=== PATIENT | male | born 1985 | race Caucasian/White ===

== ENCOUNTER 2017-06-16 08:47 | Emergency (ER) | payer SELFPAY ==
[2017-06-16 08:56] VITALS: BP 160/70; PULSE 99; TEMP 98.7; BMI 29.1
[2017-06-16] MEDS ORDERED: KETOROLAC TROMETHAMINE 60 MG/2 ML VIAL IM ONE (09:11)
[2017-06-16] MEDS ORDERED: KETOROLAC TROMETHAMINE 60 MG/2 ML VIAL ONE (09:13)
[2017-06-16 09:42] LABS: URINE APPEARANCE CLEAR; URINE BILIRUBIN NEGATIVE (NEGATIVE); URINE BLOOD 1+ (NEGATIVE); URINE COLOR YELLOW; URINE GLUCOSE (UA) NEGATIVE (NEGATIVE); URINE KETONE NEGATIVE (NEGATIVE); URINE LEUK ESTERASE NEGATIVE (NEGATIVE); URINE NITRITE NEGATIVE (NEGATIVE); URINE PROTEIN NEGATIVE (NEGATIVE); URINE UROBILINOGEN NEGATIVE mg/dL (0.2-1.0)
[2017-06-16 10:06] LABS: URINE MUCUS RARE; URINE RBC 1 /hpf (0-3); URINE WBC 1 /hpf (3-5)
--- NOTE | 2017-06-16 11:56 | PDOC ---
History of Present Illness - General Chief Complaint: Back Pain Stated Complaint: LOWER BACK PAIN Time Seen by Provider: 06/16/17 09:03 History Source: Patient Exam Limitations: No Limitations - History of Present Illness Initial Comments: 06/16/17 11:50 CC mild left mid back pain; no FEver/ chills; no cough; Mild suprapubic pain x 2 -3 days 06/16/17 11:51 2-3 days Pain Location: reports: back Method of Injury: No: assault, direct blow, fall Past History - Past Medical History Allergies/Adverse Reactions: Allergies Allergy/AdvReac Type Severity Reaction Status Date / Time No Known Allergies Allergy Verified 06/16/17 08:52 Home Medications: Ambulatory Orders NK [No Known Home Medication] 06/16/17 Psychiatric Problems: Yes (BIPOLAR) - Psycho/Social/Smoking Cessation Hx Anxiety: Yes Suicidal Ideation: No Smoking Status: No Smoking History: Never smoked Number of Cigarettes Smoked Daily: 0 Hx Alcohol Use: No Drug/Substance Use Hx: No Substance Use Type: Alcohol Review of Systems - Review of Systems Constitutional: Yes: Malaise. No: Chills, Fever HEENTM: No: Symptoms Reported Respiratory: No: Cough, SOB with Exertion, SOB at Rest, Stridor, Wheezing Cardiac (ROS): No: Symptoms Reported, Chest Pain, Irregular Heart Rate ABD/GI: No: Symptoms Reported, Abdominal Distended, Diarrhea, Nausea, Vomiting : No: Burning, Dysuria Musculoskeletal: Yes: Back Pain (left back) *Physical Exam - Vital Signs Last Vital Signs Temp Pulse Resp BP Pulse Ox 98.7 F 99 H 19 160/70 99 06/16/17 08:53 06/16/17 08:53 06/16/17 08:53 06/16/17 08:53 06/16/17 08:53 - Physical Exam General Appearance: Yes: Appropriately Dressed. No: Apparent Distress HEENT: positive: TMs Normal, Pharynx Normal Neck: positive: Supple. negative: Tender, Rigid, Lymphadenopathy (R), Lymphadenopathy (L) Respiratory/Chest: positive: Lungs Clear, Normal Breath Sounds. negative: Chest Tender, Rhonchi, Stridor, Wheezing Cardiovascular: positive: Regular Rhythm, Regular Rate. negative: Murmur Gastrointestinal/Abdominal: positive: Normal Bowel Sounds, Soft. negative: Tender, Rebound, Tenderness, Hepatomegaly, Spleenomegaly Musculoskeletal: positive: CVA Tenderness (on left), Other (tender to area of L2 -L4; perispinal; no midline tenderness) Integumentary: negative: Cyanotic Neurologic: positive: Motor Strength 5/5, Other (no foot drop; DTRs= bilateral equal; SLRs= no root pain) ED Treatment Course - ADDITIONAL ORDERS Additional order review: Laboratory Results 06/16/17 09:13 Urine Color Yellow Urine Appearance Clear Urine pH 5.0 Urine Protein Negative Urine Glucose (UA) Negative Urine Ketones Negative Urine Blood 1+ H Urine Nitrite Negative Urine Bilirubin Negative Urine Urobilinogen Negative Ur Leukocyte Esterase Negative Urine RBC 1 Urine WBC 1 Ur Epithelial Cells Rare Urine Mucus Rare - RADIOLOGY Radiology Studies Ordered: Category Date Time Status ABDOMEN & PELVIS CT W/O CONTR [CT] Stat CT Scan 06/16/17 10:12 Taken - Medications Given in the ED: ED Medications Discontinued Medications Generic Name Dose Route Start Last Admin Trade Name Freq PRN Reason Stop Dose Admin Ketorolac Tromethamine 60 mg 06/16/17 09:11 06/16/17 09:21 Toradol Injection - IM 06/16/17 09:12 60 mg ONCE ONE Administration Medical Decision Making - Medical Decision Making 06/16/17 11:55 mild improvement post toradol; UA= notes 1 + blood with CVA tenderness on left; sent to CT for renal protocol *DC/Admit/Observation/Transfer Diagnosis at time of Disposition: Pain in lower back Qualifiers: Chronicity: acute Back pain laterality: left Sciatica presence: without sciatica Qualified Code(s): M54.5 - Low back pain - Discharge Dispostion Disposition: HOME Condition at time of disposition: Stable Admit: No
--- NOTE | 2017-06-16 12:07 | PDOC ---
History of Present Illness - General Chief Complaint: Back Pain Stated Complaint: LOWER BACK PAIN Time Seen by Provider: 06/16/17 09:03 Past History - Past Medical History Allergies/Adverse Reactions: Allergies Allergy/AdvReac Type Severity Reaction Status Date / Time No Known Allergies Allergy Verified 06/16/17 08:52 Home Medications: Ambulatory Orders Naproxen [Naprosyn -] 500 mg PO BID #14 tablet 06/16/17 Psychiatric Problems: Yes (BIPOLAR) - Psycho/Social/Smoking Cessation Hx Anxiety: Yes Suicidal Ideation: No Smoking Status: No Smoking History: Never smoked Number of Cigarettes Smoked Daily: 0 Hx Alcohol Use: No Drug/Substance Use Hx: No Substance Use Type: Alcohol *Physical Exam - Vital Signs Last Vital Signs Temp Pulse Resp BP Pulse Ox 98.7 F 99 H 19 160/70 99 06/16/17 08:53 06/16/17 08:53 06/16/17 08:53 06/16/17 08:53 06/16/17 08:53 ED Treatment Course - ADDITIONAL ORDERS Additional order review: Laboratory Results 06/16/17 09:13 Urine Color Yellow Urine Appearance Clear Urine pH 5.0 Urine Protein Negative Urine Glucose (UA) Negative Urine Ketones Negative Urine Blood 1+ H Urine Nitrite Negative Urine Bilirubin Negative Urine Urobilinogen Negative Ur Leukocyte Esterase Negative Urine RBC 1 Urine WBC 1 Ur Epithelial Cells Rare Urine Mucus Rare - RADIOLOGY Radiology Studies Ordered: Category Date Time Status ABDOMEN & PELVIS CT W/O CONTR [CT] Stat CT Scan 06/16/17 10:12 Taken - Medications Given in the ED: ED Medications Discontinued Medications Generic Name Dose Route Start Last Admin Trade Name Gentryq PRN Reason Stop Dose Admin Ketorolac Tromethamine 60 mg 06/16/17 09:11 06/16/17 09:21 Toradol Injection - IM 06/16/17 09:12 60 mg ONCE ONE Administration *DC/Admit/Observation/Transfer Diagnosis at time of Disposition: Pain in lower back Qualifiers: Chronicity: acute Back pain laterality: left Sciatica presence: without sciatica Qualified Code(s): M54.5 - Low back pain Hematuria Qualifiers: Hematuria type: idiopathic Glomerular morphologic changes: unspecified whether glomerular morphologic changes present Qualified Code(s): N02.9 - Recurrent and persistent hematuria with unspecified morphologic changes - Discharge Dispostion Disposition: HOME Condition at time of disposition: Stable - Prescriptions Prescriptions: Naproxen [Naprosyn -] 500 mg PO BID #14 tablet - Patient Instructions Additional Instructions: please follow up with local MD for blood in urine
== END 2017-06-16 13:00 | disposition home or self-care (01) ==
LOC: JERFT 08:47
PROC: 3E0233Z Introduction of Anti-inflammatory into Muscle, Percutaneous Approach (ICD-10-PCS; principal; 2017-06-16)
DX: M54.5 Low back pain (principal); F31.9 Bipolar disorder, unspecified; F41.9 Anxiety disorder, unspecified
CPT/HCPCS: 74176-TC; 81003; 81015; 99281-25

== ENCOUNTER 2018-06-11 19:27 | Emergency (ER) | payer OTHER ==
[2018-06-11 19:49] VITALS: BP 134/60; PULSE 101; TEMP 98.3; BMI 27.1
--- NOTE | 2018-06-11 19:57 | PDOC ---
Rapid Medical Evaluation Chief Complaint: Rash Time Seen by Provider: 06/11/18 19:52 Medical Evaluation: Allergies Allergy/AdvReac Type Severity Reaction Status Date / Time No Known Allergies Allergy Verified 06/11/18 19:47 Vital Signs Temp Pulse Resp BP Pulse Ox 98.3 F 101 H 18 134/60 100 06/11/18 19:47 06/11/18 19:47 06/11/18 19:47 06/11/18 19:47 06/11/18 19:47 06/11/18 19:53 complain: Patient with no sig PMhx present with complains of rash to left upper extremity which has been persistent for a week now. pt saw PCP few days ago and was placed on Bactrim Abx, ketoconazole topical cream and ibuprofen for symptoms which did not help with symptoms . Patient report rash as very itchy and spreading from left hand to forarms exam: grouped multiple vesicular erythematous rashes on dorsal and palmar aspect of left hand and web spaces of 2nd and 4th web space . multiple areas of vesicular grouped rash to left forearm. right UE clear order: nothing f/u patient will proceed to ED for further evaluation Discharge Disposition - Diagnosis Dermatitis - Discharge Dispostion Last Admission D/C Date: 09/28/11 - Referrals - Patient Instructions - Post Discharge Activity
--- NOTE | 2018-06-11 20:25 | PDOC ---
History of Present Illness - General Chief Complaint: Rash Stated Complaint: RASH Time Seen by Provider: 06/11/18 19:52 - History of Present Illness Initial Comments: 2-year-old healthy active male without comorbidities presents for evaluation of painful rash 6 days. There are no other associated symptoms. He did see his primary care physician and placed him on Bactrim and ibuprofen. 06/11/18 20:21 Past History - Past Medical History Allergies/Adverse Reactions: Allergies Allergy/AdvReac Type Severity Reaction Status Date / Time No Known Allergies Allergy Verified 06/11/18 19:47 Home Medications: Ambulatory Orders Acyclovir [Zovirax -] 800 mg PO 5XD #35 tablet 06/11/18 Ibuprofen 600 mg PO QID PRN 06/11/18 Ketoconazole 2% Cream [Nizoral 2% Cream -] 1 applic TP DAILY 06/11/18 Sulfamethoxazole/Trimethoprim [Sulfamethoxazole-Tmp Ds Tablet] 1 each PO BID 04/23 COPD: No Psychiatric Problems: Yes (BIPOLAR) - Suicide/Smoking/Psychosocial Hx Smoking Status: No Smoking History: Never smoked Number of Cigarettes Smoked Daily: 0 Hx Alcohol Use: No Drug/Substance Use Hx: No Substance Use Type: Alcohol Review of Systems - Review of Systems Integumentary: Yes: Rash All Other Systems: Reviewed and Negative *Physical Exam - Vital Signs Last Vital Signs Temp Pulse Resp BP Pulse Ox 98.3 F 101 H 18 134/60 100 06/11/18 19:47 06/11/18 19:47 06/11/18 19:47 06/11/18 19:47 06/11/18 19:47 - Physical Exam Comments: HEAD: NC/AT EYES: Conjuntiva clear Ears: Canals and TM's normal NOSE: No d/c THROAT: Moist mucous membrances, oral pharanx clear, uvula midline NECK: Supple without adenopathy CARDIAC: S1 S2 LUNGS: CTA Full and Equal breath sounds ABDOMEN: Soft NT ND MS: Full ROM in all joints without edema NEUROLOGIC: No gross sensory or motor deficits, NVID SKIN: Normal color and temperature is a vesicular rash on the left upper extremity raised closed vesicles no indication of secondary infection. The rash appears to follow a dermatome. 06/11/18 20:21 Medical Decision Making - Medical Decision Making Rash appears herpetic I will treat him with acyclovir I do not see the need for Bactrim. 06/11/18 20:22 *DC/Admit/Observation/Transfer Diagnosis at time of Disposition: Shingles Diagnosis at time of Disposition: (Ruled Out): Dermatitis - Discharge Dispostion Disposition: HOME Condition at time of disposition: Stable Decision to Admit order: No - Prescriptions Prescriptions: Acyclovir [Zovirax -] 800 mg PO 5XD #35 tablet - Referrals Referrals: Louis Ortiz MD [Primary Care Provider] - - Patient Instructions Printed Discharge Instructions: Shingles Additional Instructions: Return to the emergency room should symptoms worsen or go unresolved. Pleasebe a primary care physician to decide whether you need the antibiotics he is prescribed 3. I personally do not see the need for them I think this rash is viral and can be treated with acyclovir which I have called and tearful. Follow up with her primary care physician one to 2 days for further evaluation and treatment options. Again return to the emergency room should symptoms worsen or go unresolved. He may continue the ibuprofen for pain - Post Discharge Activity
== END 2018-06-11 20:32 | disposition home or self-care (01) ==
LOC: JERFT 19:27
DX: B02.9 Zoster without complications (principal); F31.9 Bipolar disorder, unspecified
CPT/HCPCS: 99281-25

== ENCOUNTER 2019-04-30 06:50 | Emergency (ER) | payer OTHER | END 2019-04-30 09:55 | disposition home or self-care (01) | LOC: JER 06:50 ==